=== PATIENT | female | born 1985 ===

== ENCOUNTER 2018-05-08 04:01 | Emergency (ER) | payer BC ==
--- NOTE | 2018-05-08 04:30 | Emergency Department Record ---
History of Present Illness - General Source: Patient Mode of Arrival: Ambulatory Limitations: No limitations - History of Present Illness Initial Comments: pt had sudden onset of ruq pain at 1am after having a large meal of irish rice w ceese at 1130pm she has nausea as well and v once. she has a strong family hx of cholelithiasis. she has not had this before MD Complaint: Abdominal pain Onset/Timin -: Hour(s) Location: Epigastric, RUQ Radiation: RUQ Severity: Moderate Severity scale (1-10): 7 Quality: Fullness Consistency: Constant Improves With: Nothing Worsens With: Nothing Associated Symptoms: Nausea, Vomiting - Related Data LMP (females 10-50): Last week Patient : No <Valeria Graf - Last Filed: 05/08/18 05:55> <Cuong Navarro - Last Filed: 05/08/18 09:21> - General Chief Complaint: Abdominal Pain Stated Complaint: UPPER ABD PAIN Time Seen by Provider: 05/08/18 04:23 - Related Data Previous Rx's Medication Instructions Recorded Hydrocodone/Acetaminophen [[place] 1 - 2 each PO QID #12 tablet 05/08/18 5-325 Tablet] Allergies Allergy/AdvReac Type Severity Reaction Status Date / Time No Known Allergies Allergy Unverified 07/25/16 13:30 Travel Screening - Travel/Exposure Within Last 30 Days Have you traveled within the last 30 days?: No <Valeria Graf - Last Filed: 05/08/18 05:55> Review of Systems Reviewed: No additional complaints except as noted below Constitutional: Reports: As per HPI. Denies: Chills, Fever, Malaise, Night sweats, Weakness, Weight change Eyes: Reports: As per HPI. Denies: Eye discharge, Eye pain, Photophobia, Vision change ENT: Reports: As per HPI. Denies: Congestion, Dental pain, Ear pain, Epistaxis , Hearing loss, Throat pain Respiratory: Reports: As per HPI. Denies: Cough, Dyspnea, Hemoptysis, Stridor, Wheezes Cardiovascular: Reports: As per HPI. Denies: Arrhythmia, Chest pain, Dyspnea on exertion, Edema, Murmurs, Orthopnea, Palpitations, Paroxysmal nocturnal dyspnea, Rheumatic Fever, Syncope Endocrine: Reports: As per HPI. Denies: Fatigue, Heat or cold intolerance, Polydipsia, Polyuria Gastrointestinal: Reports: As per HPI, Abdominal pain, Nausea, Vomiting. Denies : Constipation, Diarrhea, Hematemesis, Hematochezia, Melena Genitourinary: Reports: As per HPI. Denies: Abnormal menses, Discharge, Dyspareunia, Dysuria, Frequency, Hematuria, Incontinence, Retention, Urgency Musculoskeletal: Reports: As per HPI. Denies: Arthralgia, Back pain, Gout, Joint swelling, Myalgia, Neck pain Skin: Reports: As per HPI. Denies: Bruising, Change in color, Change in hair/ nails, Lesions, Pruritus, Rash Neurological: Reports: As per HPI. Denies: Abnormal gait, Confusion, Headache, Numbness, Paresthesias, Seizure, Tingling, Tremors, Vertigo, Weakness Psychiatric: Reports: As per HPI. Denies: Anxiety, Auditory hallucinations, Depression, Homicidal thoughts, Suicidal thoughts, Visual hallucinations Hematological/Lymphatic: Reports: As per HPI. Denies: Anemia, Blood Clots, Easy bleeding, Easy bruising, Swollen glands <Valeria Graf - Last Filed: 05/08/18 05:55> Past Medical History - SOCIAL HISTORY Smoking Status: Light tobacco smoker (<10/day) Alcohol Use: Occasional Drug Use: None - RESPIRATORY Hx Respiratory Disorders: No - CARDIOVASCULAR Hx Cardio Disorders: No - NEURO Hx Neuro Disorders: No - GI Hx GI Disorders: No - Hx Genitourinary Disorders: No - ENDOCRINE Hx Endocrine Disorders: No - MUSCULOSKELETAL Hx Musculoskeletal Disorders: No - PSYCH Hx Psych Problems: No - HEMATOLOGY/ONCOLOGY Hx Hematology/Oncology Disorders: No <Valeria Graf - Last Filed: 05/08/18 05:55> Family Medical History Any Significant Family History?: Yes Hx Cancer: Grandparents <Valeria Graf - Last Filed: 05/08/18 05:55> Physical Exam - General General Appearance: Alert, Oriented x3, Cooperative, Mild distress - Head Head exam: Normal inspection - Eye Eye exam: Normal appearance, PERRL, EOMI Pupils: Normal accommodation - ENT ENT exam: Normal exam, Mucous membranes moist, Normal external ear exam, Normal orophraynx Ear exam: Normal external inspection. negative: External canal tenderness Nasal Exam: Normal inspection. negative: Discharge, Sinus tenderness Mouth exam: Normal external inspection, Tongue normal Teeth exam: Normal inspection. negative: Dental caries Throat exam: Normal inspection. negative: Tonsillar erythema, Tonsillar exudate - Neck Neck exam: Normal inspection, Full ROM. negative: Tenderness - Respiratory Respiratory exam: Normal lung sounds bilaterally. negative: Respiratory distress - Cardiovascular Cardiovascular Exam: Regular rate, Normal rhythm, Normal heart sounds - GI/Abdominal GI/Abdominal exam: Soft, Normal bowel sounds, Tenderness (ruq), Other (pos murphys) - Rectal Rectal exam: Deferred - exam: Deferred - Extremities Extremities exam: Normal inspection, Full ROM, Normal capillary refill. negative: Tenderness - Back Back exam: Reports: Normal inspection, Full ROM. Denies: Muscle spasm, Rash noted, Tenderness - Neurological Neurological exam: Alert, CN II-XII intact, Normal gait, Oriented X3 - Psychiatric Psychiatric exam: Normal affect, Normal mood - Skin Skin exam: Dry, Intact, Normal color, Warm <Valeria Graf - Last Filed: 05/08/18 05:55> Course Vital Signs 05/08/18 04:08 Temperature 97.8 F Pulse Rate 82 Respiratory 20 Rate Blood Pressure 117/85 Pulse Ox 97 - Reevaluation(s) Reevaluation #1: 05/08/18 06:02 pt will remain npo and have anus of gb at 7am. care will be turned over to dr navarro <Valeria Graf - Last Filed: 05/08/18 05:55> Vital Signs 05/08/18 05/08/18 04:08 07:05 Temperature 97.8 F Pulse Rate 82 Pulse Rate [ 84 Pulse Ox Probe] Respiratory 20 16 Rate Blood Pressure 117/85 Blood Pressure 103/70 [Right Arm] Pulse Ox 97 100 - Reevaluation(s) Reevaluation #2: The patient is doing a lot better. She is presently sleeping in the room. On exam her abdomen is very soft with only very minimal RUQ tenderness. We are still waiting on the US results. 05/08/18 08:50 Reevaluation #3: The patient is doing a lot better at this time and is basically pain free. I did consult with Dr. Salas and he would like to see the [facility] Friday in 3 days. 05/08/18 09:03 <Cuong Navarro - Last Filed: 05/08/18 09:21> Medical Decision Making - Lab Data Result diagrams: 05/08/18 04:35 05/08/18 04:35 <Valeria Graf [place] - Last Filed: 05/08/18 05:55> - Data Complexity MDM Data: Labs Ordered and/or Reviewed, X-Ray Ordered and/or Reviewed - Lab Data Result diagrams: 05/08/18 04:35 05/08/18 04:35 Lab Results 05/08/18 05/08/18 05/08/18 Range/Units 04:35 04:35 04:35 WBC 5.4 (4.2-12.2) K/uL RBC 4.31 (3.80-5.40) M/uL Hgb 13.1 (11.6-16.0) gm/dl Hct 38.2 (35.0-47.0) % MCV 88.6 (81-97) fl MCH 30.4 (27-33) pg MCHC 34.3 (32-36) g/dl RDW 12.6 (11.5-14.5) % Plt Count 234 (130-400) K/uL MPV 10.3 (7.4-10.4) fl Gran % 65.2 (47-80) % Lymphocytes % 23.0 (16-45) % Monocytes % 6.9 (0-9) % Eosinophils % 4.5 (0-6) % Basophils % 0.4 (0-6) % Sodium 145 (136-145) mmol/L Potassium 3.9 (3.4-4.5) mmol/L Chloride 103 (98-107) mmol/L Carbon Dioxide 27.0 (22-29) mmol/L Anion Gap 15.0 (7-16) BUN 8 (6-20) mg/dL Creatinine 0.6 (0.5-0.9) mg/dL Estimated GFR > 60 mL/min Random Glucose 101 (74-109) mg/dL Calcium 9.3 (8.6-10.0) mg/dL Total Bilirubin 0.20 (0.2-1.0) mg/dL AST 25 (10.0-35.0) U/L ALT 24 (<33) U/L Alkaline Phosphatase 61 (35-104) U/L Total Protein 7.0 (6.6-8.7) g/dL Albumin 4.4 (4.0-5.0) g/dL Globulin 2.6 (1.4-4.8) gm/dL Albumin/Globulin Ratio 1.7 (1.1-1.8) Lipase 33 (13-60) U/L Serum HCG, Qual Negative (NEGATIVE) - Radiology Data Radiology results: Report reviewed (US: Positive for stones, neg ductal dilation or wall thickening or fluid.) <Cuong Navarro - Last Filed: 05/08/18 09:21> Disposition <Valeria Graf - Last Filed: 05/08/18 05:55> Disposition: Discharge Time of Disposition: 09:20 <Cuong Navarro - Last Filed: 05/08/18 09:21> Clinical Impression: Biliary colic Disposition: Home, Self-Care Condition: (2) Stable Instructions: Abdominal Pain (ED) Additional Instructions: Please see Dr. Salas on Friday as planned. Do not eat any fatty or fried foods. Use Tylenol or [place] for pain. Return to the ER for any worsening pain, fever, or vomiting. Prescriptions: Hydrocodone/Acetaminophen [[place] 5-325 Tablet] 1 - 2 each PO QID #12 tablet Forms: Patient Portal Access Quality - Blood Pressure Screening Does Patient Have Any of the Following: No Blood Pressure Classification: Pre-Hypertensive BP Reading Systolic Measurement: 117 Diastolic Measurement: 85 Screening for High Blood Pressure: < Pre-Hypertensive BP, F/U Documented > [ G8950] <Valeria Graf - Last Filed: 05/08/18 05:55> - Blood Pressure Screening Does Patient Have Any of the Following: No Blood Pressure Classification: Pre-Hypertensive BP Reading Systolic Measurement: 117 Diastolic Measurement: 85 Screening for High Blood Pressure: < Pre-Hypertensive BP, F/U Documented > [ G8950] <Cuong Navarro - Last Filed: 05/08/18 09:21>
[2018-05-08] MEDS ORDERED: ONDANSETRON HCL IV 4 MG/2 ML VIAL IV ONE (04:31)
[2018-05-08] MEDS ORDERED: 0.9 % SODIUM CHLORIDE 1,000 ML BAG IV ONE (04:31)
[2018-05-08] MEDS ORDERED: HYDROMORPHONE HCL 2 MG/ML VIAL IVP ONE (04:39)
[2018-05-08 04:57] LABS: BASO % 0.4 % (0-6); EOS % 4.5 % (0-6); GRAN % 65.2 % (47-80); HEMATOCRIT 38.2 % (35.0-47.0); HEMOGLOBIN 13.1 gm/dl (11.6-16.0); MEAN CELL VOLUME 88.6 fl (81-97); MEAN CORPUSCULAR HEMOGLOBIN 30.4 pg (27-33); MEAN CORPUSCULAR HGB CONC 34.3 g/dl (32-36); MEAN PLATELET VOLUME 10.3 fl (7.4-10.4); MONO % 6.9 % (0-9); PLATELET COUNT 234 K/uL (130-400); RED BLOOD COUNT 4.31 M/uL (3.80-5.40); RED CELL DISTRIBUTION WIDTH 12.6 % (11.5-14.5); WHITE BLOOD COUNT W/O DIFF 5.4 K/uL (4.2-12.2)
[2018-05-08 06:18] LABS: BLOOD UREA NITROGEN 8 mg/dL (6-20); CREATININE 0.6 mg/dL (0.5-0.9); EST GLOMERULAR FILTRATION RATE > 60 mL/min
[2018-05-08 06:21] LABS: GLUCOSE,RANDOM 101 mg/dL (74-109)
[2018-05-08 06:24] LABS: ALB/GLOB RATIO 1.7 (1.1-1.8); ALBUMIN 4.4 g/dL (4.0-5.0); ALKALINE PHOSPHATASE 61 U/L (35-104); ALT/SGPT 24 U/L (<33); AST/SGOT 25 U/L (10.0-35.0); LIPASE 33 U/L (13-60)
--- NOTE | 2018-05-10 16:36 | ULTRASOUND REPORT ---
DATE: 05/08/2018 EXAM: ULTRASOUND OF THE ABDOMEN. HISTORY: Abdominal pain in the right upper quadrant. TECHNIQUE: Sonographic evaluation of the abdomen was performed using Grayscale imaging. FINDINGS: The liver appears homogeneous. There is cholelithiasis. No ductal dilatation. The patient demonstrated a positive Dempsey's sign. The pancreas and spleen are normal. The kidneys are normal in size with no hydronephrosis or nephrolithiasis. The abdominal aorta and inferior vena cava are patent. No free fluid in the abdomen. IMPRESSION: 1. CHOLELITHIASIS WITHOUT DUCTAL DILATATION. 2. THE PATIENT DEMONSTRATES A POSITIVE DEMPSEY'S SIGN. THIS CAN BE SEEN IN ACUTE CHOLECYSTITIS, AND THE BILE DUCT MEASURES 5.0 MM. JOB NUMBER: [id number] MTDD
== END 2018-05-08 09:38 | disposition home or self-care (01) ==
LOC: ER 04:01
DX: K80.50 Calculus of bile duct without cholangitis or cholecystitis without obstruction (principal); R11.2 Nausea with vomiting, unspecified; F17.210 Nicotine dependence, cigarettes, uncomplicated
CPT/HCPCS: 76700; 80053; 83690; 84703; 85025; 96374; 96375; 99284; J2405; J7030